=== PATIENT | female | born 1955 | race Caucasian/White ===

== ENCOUNTER → 2016-09-29 | Outpatient (CLI) | payer OTHER ==
[~2016-09-29] MED LIST: EFFSR150 PO; MCRKUNK; MGN PO; MULT-513 PO
--- NOTE | 2016-09-29 16:02 | MAMMOGRAPHY REPORT ---
BILATERAL DIGITAL SCREENING MAMMOGRAM TOMOSYNTHESIS WITH CAD: 09/29/2016 CLINICAL HISTORY: Routine screening. Patient has no complaints. TECHNIQUE: Breast tomosynthesis in addition to standard 2D mammography was performed. Current study was also evaluated with a Computer Aided Detection (CAD) system. COMPARISON: Comparison is made to exams dated: 04/27/2014 mammogram, 08/13/2012 mammogram, 05/09/2011 mammogram, and 02/09/2010 mammogram - [facility]. BREAST COMPOSITION: There are scattered areas of fibroglandular density in both breasts. FINDINGS: There is a small cluster of calcifications in the left upper outer quadrant, for which sp ot magnification views are recommended for further evaluation. The remainder of both breasts are stable compared to prior exams, without suspicious masses, calcifi cations, or areas of architectural distortion noted. Other scattered bilateral coarse benign-appear ing calcifications are again noted. IMPRESSION: ACR BI-RADS CATEGORY 0: INCOMPLETE EVALUATION: NEED ADDITIONAL IMAGING EVALUATION Left upper outer quadrant calcifications, for which additional imaging evaluation is recommended. T he patient will be called to schedule an appointment. Approximately 10% of breast cancers are not detected with mammography. A negative mammographic repor t should not delay biopsy if a clinically suggestive mass is present. Latisha Miranda M.D. ah/:09/29/2016 15:43:27 Account Services Manager: Lucero Pierre [facility] letter sent: Addl Imaging 0 BI-RADS Code: ACR BI-RADS Category 0: Incomplete Evaluation: Need Additional Imaging Evaluation
== END | disposition home or self-care (01) ==
LOC: C.MAMM 14:56
PROVIDERS: ATTEND Family Medicine
DX: Z12.31 Encounter for screening mammogram for malignant neoplasm of breast (principal); R92.1 Mammographic calcification found on diagnostic imaging of breast

== ENCOUNTER → 2016-10-06 | Outpatient (CLI) | payer OTHER ==
--- NOTE | 2016-10-06 14:32 | MAMMOGRAPHY REPORT ---
UNILATERAL LEFT DIGITAL DIAGNOSTIC MAMMOGRAM: 10/06/2016 CLINICAL HISTORY: 61-year-old woman with a family history of breast cancer = mother, called back fro m screening mammography for a new cluster of calcifications in the left breast. TECHNIQUE: Spot magnification CC and ML views were obtained. COMPARISON: Comparison is made to exams dated: 09/29/2016 mammogram, 04/27/2014 mammogram, 08/13/2012 mammogram, 05/09/2011 mammogram, 02/09/2010 mammogram - [facility], and 10/10/2006. BREAST COMPOSITION: There are scattered areas of fibroglandular density in the left breast. FINDINGS: There is a small, 3 mm cluster of coarse heterogeneous microcalcifications in the approxi mate 4:00 middle one third of the left breast that is new comparing to the most recent prior availab le mammograms from 04/27/2014. There is possible associated faint nodularity appreciated on the CC view suggesting this could represent a degenerating fibroadenoma. However, definitive characterizat ion with tissue sampling is recommended to exclude the possibility of DCIS, particularly with the pa rojas's family history of breast cancer. There are a few other benign round and coarse calcificatio ns seen in the left breast. No other suspicious mass or focal area of architectural distortion. IMPRESSION: ACR BI-RADS CATEGORY 4B: INTERMEDIATE SUSPICION FOR MALIGNANCY A new 3 mm cluster of coarse heterogeneous microcalcifications in the lateral left breast is indeter minate, warranting further evaluation with a stereotactic guided biopsy. These results were co recommendations nditions were discussed with the patient at the time of the ex am. She ctentatively scheduled the biopsy prior to leaving our department. Approximately 10% of breast cancers are not detected with mammography. A negative mammographic repor t should not delay biopsy if a clinically suggestive mass is present. Lara Clarke M.D. ay/:10/06/2016 11:52:17 Learning And Development Associate: Roseline [employer])(M), [facility] letter sent: Abnormal 4/5 BI-RADS Code: ACR BI-RADS Category 4B: Intermediate Suspicion For Malignancy
== END | disposition home or self-care (01) ==
LOC: C.MAMM 11:16
PROVIDERS: ATTEND Family Medicine
DX: R92.1 Mammographic calcification found on diagnostic imaging of breast (principal); R92.0 Mammographic microcalcification found on diagnostic imaging of breast; Z80.3 Family history of malignant neoplasm of breast

== ENCOUNTER → 2016-10-25 | Outpatient (CLI) | payer OTHER ==
--- NOTE | 2016-10-25 13:17 | Discharge Instructions ---
Discharge Instructions Procedure Procedure Date: Oct 25, 2016. Reason for visit: Left Calcifications. Discharge Discharge Date: Oct 25, 2016. Discharge Diagnosis: status post breast biopsy Instructions Activity Recommendations: Additional Limitations (see below) Return to School/Work: no limitations Recommended Home Diet: No Limitations Provider Instructions: ACTIVITY RECOMMENDATIONS: * No lifting, pushing, pulling or exercising the affected side for three days. RETURN TO SCHOOL/WORK: * You may return to work/school after the procedure, but do not perform any strenuous activities for 24 to 48 hours. MEDICATIONS: * Tylenol (two 325 mg) every four to six hours if needed for mild pain (if not allergic to Tylenol). DIET: * Resume previous diet. SPECIAL CARE INSTRUCTIONS: * Keep biopsy site dry for 24 hours. May shower after 24 hours, but do not soak (bathe) incision. * May remove Tegaderm (plastic patch) tomorrow AFTER showering. * Leave the steri-strips on for one week. Allow the steri-strips to fall off by themselves. If not off after one week, you may remove them. You may place a Bandaid crosswise over the strips, if desired. * Apply ice 10 minutes on and 10 minutes off as needed. * Wear a bra at bedtime to sleep more comfortably for 2-3 days. * Your referring physician should have the results after approximately 5 to 7 business days. * Call for unusual bleeding, fever, drainage, etc or if you have any questions call during normal business hours or after hours call Dr Miranda, . FOLLOW UP VISIT: Follow-up with Referring Physician as scheduled. Allergies Coded Allergies: No Known Allergies (Unverified , NONE, 03/27/09) Stephen Velarde Recommendations: Call your doctor if: * Temperature above 101 degrees * Pain not relieved by pain medicine ordered * There is increased drainage or redness from any incision * You have any unanswered questions or concerns. Your Doctors Instructions noted above were prepared by provider Latisha Miranda. Patient Signature Section: Patient Instructions Signature Page Fabienne Fitzgerald Patient (or Guardian) Signature/Date: I have read and understand the instructions given to me by my caregivers. Caregiver/RN/Doctor Signature/Date: The above-named patient and/or guardian has received patient instructions on this date. + Original Patient Signature Page (only) stays with chart. Please make copy for patient.
--- NOTE | 2016-10-25 14:41 | MAMMOGRAPHY REPORT ---
STEREOTACTIC GUIDED BIOPSY LEFT BREAST: 10/25/2016 CLINICAL HISTORY: Indeterminate calcifications in the left lateral breast. PATIENT CONSENT: The procedure, risks, benefits, and alternatives of stereotactic biopsy with clip p lacement were discussed with the patient, and verbal and written consent was obtained. A timeout wa s performed immediately prior to the procedure. PROCEDURE DESCRIPTION: With stereotactic guidance, aseptic technique, and lidocaine as a local anest hetic (1% lidocaine to anesthetize the skin and 1% lidocaine with epinephrine to anesthetize the bibi per tissues), the area of concern was sampled multiple times with a 9-gauge vacuum-assisted biopsy n eedle ([employer] The path of approach was lateral. The specimen radiograph demonstrates calcif ications to be present in the samples. The calcifications containing samples (labeled "A ") were se parated from the samples without calcifications (labeled "B"). A metallic marker clip was placed at the biopsy site. This was confirmed on postprocedure mammograms. Direct pressure was applied at t he biopsy site and hemostasis was readily achieved. The patient tolerated the procedure without com plication. She was given wound care instructions. COMPARISON: Comparison is made to exams dated: 10/06/2016 mammogram, 09/29/2016 mammogram, 04/27/2014 mammogram, 08/13/2012 mammogram, 05/09/2011 mammogram, and 02/09/2010 mammogram - [facility]. IMPRESSION: STEREOTACTIC GUIDED BIOPSY Stereotactic biopsy of indeterminate calcifications in the left lateral breast, with clip placement. The patient will receive pathology results from her referring provider. Latisha Miranda M.D. /:10/25/2016 13:19:37 Line Patrolman: Lucero [employer])(Cosmo), [facility]
--- NOTE | 2016-10-25 14:43 | MAMMOGRAPHY REPORT ---
UNILATERAL LEFT DIGITAL DIAGNOSTIC MAMMOGRAM: 10/25/2016 CLINICAL HISTORY: Status post left breast stereotactic biopsy. TECHNIQUE: Postprocedural left CC and LM views were obtained. COMPARISON: Comparison is made to exams dated: 09/29/2016 mammogram, 04/27/2014 mammogram, 08/13/2012 mammogram, 05/09/2011 mammogram, and 02/09/2010 mammogram - [facility]. BREAST COMPOSITION: There are scattered areas of fibroglandular density in the left breast. FINDINGS: A new biopsy marker clip is seen at the site of the biopsied calcifications in the left l ateral breast at approximately 4:00. No significant postbiopsy hematoma is seen. IMPRESSION: POST PROCEDURE IMAGING FOR MARKER PLACEMENT New biopsy marker clip status post stereotactic biopsy of left lateral breast calcifications. Patho logy results are pending. Approximately 10% of breast cancers are not detected with mammography. A negative mammographic repor t should not delay biopsy if a clinically suggestive mass is present. Latisha Miranda M.D. ah/:10/25/2016 13:32:46 Lead Java Programmer: Lucero [employer])(M), [facility] BI-RADS Code: Post Procedure Imaging For Marker Placement
== END | disposition home or self-care (01) ==
LOC: C.MAMM 12:30
PROVIDERS: ATTEND Family Medicine
DX: D24.2 Benign neoplasm of left breast (principal); R92.0 Mammographic microcalcification found on diagnostic imaging of breast

== ENCOUNTER 2017-11-15 15:52 | Emergency (ER) | payer OTHER ==
[~2017-11-15] VITALS: Ht 157.5 cm; Wt 71.9 kg
[2017-11-15 15:57] VITALS: TEMP 36.6; Ht 157.5 cm; Wt 71.9 kg
[2017-11-15 17:34] LABS: HEMATOCRIT 40.9 % (37-47); HEMOGLOBIN 13.7 g/dL (12.0-16.0); MEAN CELL VOLUME 85.2 fL (80-100); MEAN CORPUSCULAR HEMOGLOBIN 28.5 pg (25-34); MEAN CORPUSCULAR HGB CONC 33.5 g/dl (32-36); MEAN PLATELET VOLUME 10.2 fL (7.4-10.4); PLATELET COUNT 296 K/uL (130-400); RED CELL DISTRIBUTION WIDTH CV 13.7 % (11.5-14.5); RED CELL DISTRIBUTION WIDTH SD 42.3 fL (36.4-46.3); WHITE BLOOD COUNT 11.37 K/uL (4.8-10.8)
--- NOTE | 2017-11-15 17:38 | EMERGENCY ROOM VISIT NOTE ---
History Report prepared by Carla: Randall Anderson Under the Supervision of: Aviva KumarO. First contact with patient: 17:29 Chief Complaint: FLANK PAIN Stated Complaint: RT SIDE PAIN GOING DOWN RIGHT LEG History of Present Illness The patient is a 62 year old female who presents to the Emergency Room with complaints of waxing and waning right flank pain that started last night. She states that overnight, she had trouble sleeping as she had right flank pain that went down to her right leg. The patient adds that during the day today, the pain has started to wrap around to her lower abdomen. She describes her abdominal pain as a pressure. She notes that her flank pain is a bit better now , but the abdominal pain is worsening. The patient says that currently she is having intermittent sharp pain wrapping around into her abdomen. She adds that she feels like she needs to urinate constantly today. The patient denies any changes in her urine, or increased frequency or strong odor. She says that she has not had a problem like this ever since she was a child. The patient notes no history or family history of kidney problems. She denies any fevers, chills, nausea, vomiting, or new changes in her bowel movement. Source of History: patient Onset: Last night Position: other (right flank) Quality: pressure, sharp, other (pain) Timing: waxes/wanes Modifying Factors (Relieving): other (standing up) Associated Symptoms: + abdominal pain, + urinary symptoms (feels like needing to urinate constantly), No fevers, No chills, No nausea, No vomiting Note: Denies changes in bowel movements. Review of Systems See HPI for pertinent positives & negatives. A total of 10 systems reviewed and were otherwise negative. Past Medical & Surgical Medical Problems: (1) HLD (hyperlipidemia) (2) HTN (hypertension) Family History FHx: cancer Hypertension Social History Smoking Status: Former Smoker Alcohol Use: occasionally Marital Status: Occupation Status: employed Current/Historical Medications Scheduled Melatonin (Kp Melatonin), Unknown Dose PO HS Multivitamins/Minerals (Mvi With Minerals), 1 TAB PO DAILY Sertraline (Zoloft), 2 TABS PO QPM Tamsulosin Hcl (Flomax), 0.4 MG PO DAILY Scheduled PRN Hydrocodone/Acetaminophen 5MG/325MG (Hopkins 5MG/325MG), 1 TABLET PO Q8 PRN for Pain Allergies Coded Allergies: No Known Allergies (Unverified , NONE, 11/15/17) Physical Exam Vital Signs Date Time Temp Pulse Resp B/P (MAP) Pulse Ox O2 Delivery O2 Flow Rate FiO2 11/15/17 20:00 65 129/76 95 11/15/17 17:18 80 18 122/72 98 Room Air 11/15/17 15:57 36.6 85 16 143/88 95 Room Air Physical Exam GENERAL: alert, uncomfortable appearing, well nourished, no distress, non-toxic EYE EXAM: normal conjunctiva, PERRL and EOM's grossly intact OROPHARYNX: no exudate, no erythema, lips, buccal mucosa, and tongue normal and mucous membranes are moist NECK: supple, no nuchal rigidity, no adenopathy, non-tender LUNGS: Clear to auscultation. Normal chest wall mechanics HEART: no murmurs, S1 normal and S2 normal ABDOMEN: abdomen soft, mild discomfort with palpation of bilateral lower quadrants and suprapubic areas, normo-active bowel sounds, no masses, no rebound or guarding. BACK: Back is symmetrical on inspection and there is no deformity. Minimal reproducible right flank pain, no CVA tenderness. SKIN: no rashes and no bruising UPPER EXTREMITIES: upper extremities are grossly normal. LOWER EXTREMITIES: No pitting edema. NEURO EXAM: Normal sensorium, cranial nerves II-XII grossly intact, normal speech, no gross weakness of arms, no gross weakness of legs. Medical Decision & Procedures ER Provider Diagnostic Interpretation: CT results have been interpreted by the radiologist and reviewed by me. ABD/PELVIS WITHOUT FOR STONE CT DOSE: 351.33 mGy.cm HISTORY: Flank pain right flank pain TECHNIQUE: Multiaxial CT images of the abdomen and pelvis were performed without the use of intravenous and oral contrast according to the standard department stone protocol. A dose lowering technique was utilized adhering to the principles of ALARA. COMPARISON STUDY: None. FINDINGS: Mild bibasilar atelectasis. Liver spleen and pancreas are unremarkable in overall morphology. Moderate right hydroureteronephrosis. Right ureter is distended to a mild degree to a 4 mm calcification of the distal right ureter. Lateral to the collateral with no contained calcifications. Nonobstructive bowel pattern. Normal appendix. IMPRESSION: 4 mm partially obstructing calculus distal right ureter. The above report was generated using voice recognition software. It may contain grammatical, syntax or spelling errors. Electronically signed by: Praful Fuentes M.D. 11/15/2017 7:05 PM Dictated Date/Time: 11/15/2017 7:01 PM Laboratory Results 11/15/17 16:08 11/15/17 16:08 Test 11/15/17 16:08 11/15/17 17:15 Red Blood Count 4.80 M/uL (4.2-5.4) Mean Corpuscular Volume 85.2 fL (80-100) Mean Corpuscular Hemoglobin 28.5 pg (25-34) Mean Corpuscular Hemoglobin Concent 33.5 g/dl (32-36) RDW Standard Deviation 42.3 fL (36.4-46.3) RDW Coefficient of Variation 13.7 % (11.5-14.5) Mean Platelet Volume 10.2 fL (7.4-10.4) Prothrombin Time 10.0 SECONDS (9.0-12.0) Prothromb Time International Ratio 1.0 (0.9-1.1) Anion Gap 7.0 mmol/L (3-11) Est Creatinine Clear Calc Drug Dose 58.9 ml/min Estimated GFR () 77.3 Estimated GFR (Non- 66.7 BUN/Creatinine Ratio 17.4 (10-20) Calcium Level 9.0 mg/dl (8.5-10.1) Troponin I < 0.015 ng/ml (0-0.045) Urine Color YELLOW Urine Appearance CLEAR (CLEAR) Urine pH 6.5 (4.5-7.5) Urine Specific [place] 1.028 (1.000-1.030) Urine Protein NEG (NEG) Urine Glucose (UA) NEG (NEG) Urine Ketones TRACE (NEG) Urine Occult Blood 3+ (NEG) Urine Nitrite NEG (NEG) Urine Bilirubin NEG (NEG) Urine Urobilinogen NEG (NEG) Urine Leukocyte Esterase NEG (NEG) Urine WBC (Auto) 1-5 /hpf (0-5) Urine RBC (Auto) >30 /hpf (0-4) Urine Hyaline Casts (Auto) 1-5 /lpf (0-5) Urine Epithelial Cells (Auto) 10-20 /lpf (0-5) Urine Bacteria (Auto) NEG (NEG) Laboratory results per my review. Medications Administered Medications (Trade) Dose Ordered Sig/Jim Route Start Time Stop Time Status Last Admin Dose Admin Ketorolac Tromethamine (Toradol Inj) 30 mg NOW STAT IV 11/15/17 17:52 11/15/17 17:53 DC 11/15/17 18:13 30 MG Fentanyl Citrate (Fentanyl Inj) 50 mcg NOW STAT IV 11/15/17 17:52 11/15/17 17:53 DC 11/15/17 18:13 50 MCG Tamsulosin HCl (Flomax Cap) 0.4 mg NOW ONCE PO 11/15/17 19:30 11/15/17 19:31 DC 11/15/17 19:52 0.4 MG Acetaminophen/ Hydrocodone Bitart (Hopkins 5/325mg Home Pack) 1 homepack UD ONCE PO 11/15/17 19:30 11/15/17 19:31 DC 11/15/17 19:52 1 HOMEPACK ED Course 1730: The patient was evaluated in room A9B. A complete history and physical exam was performed. 1751: Fentanyl Inj 50 mcg IV, Toradol Inj 30 mg IV. 1923: Upon reevaluation, the patient is feeling well and was updated. I discussed the findings and the treatment plan with the patient. She verbalizes agreement and understanding. She was discharged home. 1929: Flomax Cap 0.4 mg PO. Medical Decision Differential diagnosis: Etiologies such as renal colic, appendicitis, diverticulitis, mesenteric ischemia, aortic pathology, infections, inflammatory bowel disease, PUD, biliary pathology, UTI, as well as others were entertained. Patient well-appearing here in pain improved following medications. CT revealed 4 mm ureterolithiasis. No evidence of acute renal dysfunction, no evidence of concurrent infection, doubt other acute GI pathology contributing to pain. Discussed with patient straining of urine, adequate hydration, use of medications, ADRs associated with the pain medication, close follow-up with family doctor and possibly urology, discussed symptoms to watch and return for, she verbalized understanding was agreeable with plan. Patient well-appearing at discharge, tolerated p.o., was able toward with a steady gait, vital signs stable throughout. Medication Reconcilliation Current Medication List: was personally reviewed by me Blood Pressure Screening Patient's blood pressure: Normal blood pressure Impression Primary Impression: Ureterolithiasis Additional Impressions: Right flank pain Renal colic Scribe Attestation The scribe's documentation has been prepared under my direction and personally reviewed by me in its entirety. I confirm that the note above accurately reflects all work, treatment, procedures, and medical decision making performed by me. Departure Information Dispostion Home / Self-Care Prescriptions Hydrocodone/Acetaminophen 5MG/325MG (Hopkins 5MG/325MG) Tab 1 TABLET PO Q8 Y for Pain, #10 TAB Prov: Sofi Marx, DO 11/15/17 Tamsulosin Hcl (FLOMAX) 0.4 Mg Cap 0.4 MG PO DAILY, #10 CAP Prov: Sofi Marx, DO 11/15/17 Referrals aDrwin Archer M.D. (PCP) Patient Instructions My [facility] Additional Instructions Please call and follow-up with your family doctor. Please drink plenty of water. Please take the flomax daily until you pass the stone. You may use the stronger pain medication as prescribed, do not take it and drive and be cautious as it can make you dizzy/groggy and cause constipation. If you have any worsening pain, are unable to urinate, develop vomiting, fevers, or you have any other new or concerning symptoms, please return to the emergency room. Problem Qualifiers
[2017-11-15] MEDS ORDERED: FENTANYL CITRATE INJ 50 MCG/1 ML 2 ML VIAL IV STA (17:52)
[2017-11-15] MEDS ORDERED: KETOROLAC TROMETHAMINE 30 MG/ML VIAL IV STA (17:52)
[2017-11-15 17:53] LABS: CREATININE 0.92 mg/dl (0.60-1.20)
[2017-11-15] MEDS ORDERED: SERT25TA PO (18:05)
[2017-11-15] MEDS ORDERED: MELA1TAB5 PO (18:05)
--- NOTE | 2017-11-15 19:06 | DIAGNOSTIC IMAGING REPORT ---
ABD/PELVIS WITHOUT FOR STONE CT DOSE: 351.33 mGy.cm HISTORY: Flank pain right flank pain TECHNIQUE: Multiaxial CT images of the abdomen and pelvis were performed without the use of intravenous and oral contrast according to the standard department stone protocol. A dose lowering technique was utilized adhering to the principles of ALARA. COMPARISON STUDY: None. FINDINGS: Mild bibasilar atelectasis. Liver spleen and pancreas are unremarkable in overall morphology. Moderate right hydroureteronephrosis. Right ureter is distended to a mild degree to a 4 mm calcification of the distal right ureter. Lateral to the collateral with no contained calcifications. Nonobstructive bowel pattern. Normal appendix. IMPRESSION: 4 mm partially obstructing calculus distal right ureter. The above report was generated using voice recognition software. It may contain grammatical, syntax or spelling errors. Electronically signed by: Praful Fuentes M.D. 11/15/2017 7:05 PM Dictated Date/Time: 11/15/2017 7:01 PM
[2017-11-15] MEDS ORDERED: NORCO 5/325MG HOME PACK PO ONE (19:30)
[2017-11-15] MEDS ORDERED: TAMS0.4C38 PO (19:30)
[2017-11-15] MEDS ORDERED: TAMSULOSIN HCL 0.4 MG CAP PO ONE (19:30)
[2017-11-15] MEDS ORDERED: HYDR-5688 PO (19:30)
[2017-11-15 20:00] VITALS: BP 129/76; PULSE 65; O2SAT 95
== END 2017-11-15 20:01 | disposition home or self-care (01) ==
LOC: C.EDB 15:54 → C.EDA 20:01
DX: N20.1 Calculus of ureter (principal); N23 Unspecified renal colic; R35.0 Frequency of micturition; I10 Essential (primary) hypertension; Z87.891 Personal history of nicotine dependence; Z79.899 Other long term (current) drug therapy

== ENCOUNTER 2017-12-10 13:04 | Emergency (ER) | payer OTHER ==
[~2017-12-10] VITALS: Ht 157.5 cm; Wt 72.7 kg
[~2017-12-10 13:04] MED LIST changes: -EFFSR150 PO; +HYDR-5688 PO; -MCRKUNK; +MELA1TAB5 PO; -MGN PO; +SERT25TA PO
[2017-12-10 13:06] VITALS: TEMP 36.6; Ht 157.5 cm; Wt 72.7 kg
[2017-12-10] MEDS ORDERED: SODIUM CHLORIDE 0.9% 1000ML 1,000 ML IV STA (13:21)
[2017-12-10] MEDS ORDERED: ONDANSETRON INJ 2 MG/ML 2 ML VIAL IV STA (13:21)
[2017-12-10] MEDS ORDERED: MoRPHine SULFATE 4 MG/ML 1 ML CARP\\VIAL IV STA ×2 (13:21→13:55)
[2017-12-10] MEDS ORDERED: IBUP-1050 PO (13:25)
[2017-12-10 13:38] LABS: BASO % 0.2 %; BASO ABS # 0.02 K/uL (0-0.2); EOS % 0.2 %; EOS ABS # 0.02 K/uL (0-0.5); HEMATOCRIT 39.1 % (37-47); HEMOGLOBIN 13.2 g/dL (12.0-16.0); IG# 0.02 K/uL (0.00-0.02); LYMPH % 12.3 %; LYMPH ABS # 1.18 K/uL (1.2-3.4); MEAN CELL VOLUME 84.1 fL (80-100); MEAN CORPUSCULAR HEMOGLOBIN 28.4 pg (25-34); MEAN CORPUSCULAR HGB CONC 33.8 g/dl (32-36); MONO % 4.7 %; MONO ABS # 0.45 K/uL (0.11-0.59); NEUT % 82.4 %; NEUT ABS # 7.92 K/uL (1.4-6.5); PLATELET COUNT 301 K/uL (130-400); RED CELL DISTRIBUTION WIDTH CV 13.6 % (11.5-14.5); RED CELL DISTRIBUTION WIDTH SD 41.3 fL (36.4-46.3); WHITE BLOOD COUNT 9.61 K/uL (4.8-10.8)
--- NOTE | 2017-12-10 13:51 | DIAGNOSTIC IMAGING REPORT ---
KUB CLINICAL HISTORY: Generalized abdominal pain. FINDINGS: 2 AP supine abdominal radiographs are correlated with abdominal CT dated 11/15/2017. There is a nonobstructed abdominal bowel gas pattern. No evidence of intraperitoneal free air is seen on these supine images. There is no radiographic evidence of nephrolithiasis. Large phleboliths are identified in left hemipelvis. The Skeletal structures are osteopenic. Lumbosacral spondylosis is observed. IMPRESSION: 1. Nonobstructed abdominal bowel gas pattern. 2. There is no radiographic evidence of nephrolithiasis. Electronically signed by: Keanu Valle M.D. 12/10/2017 1:50 PM Dictated Date/Time: 12/10/2017 1:48 PM
[2017-12-10 13:57] LABS: ALBUMIN 3.9 gm/dl (3.4-5.0); CALCIUM 8.9 mg/dl (8.5-10.1); CREATININE 0.61 mg/dl (0.60-1.20); POTASSIUM 3.9 mmol/L (3.5-5.1); TOTAL PROTEIN 7.4 gm/dl (6.4-8.2)
--- NOTE | 2017-12-10 14:58 | DIAGNOSTIC IMAGING REPORT ---
ABDOMEN AND PELVIS CT WITHOUT CONTRAST CT DOSE: 729.20 mGy.cm HISTORY: c/o L flank that started L lumbar area TECHNIQUE: Multiaxial CT images of the abdomen and pelvis were performed without the use of intravenous and oral contrast according to the standard department stone protocol. A dose lowering technique was utilized adhering to the principles of ALARA. COMPARISON STUDY: Abdomen and pelvis CT 11/15/2017. FINDINGS: Groundglass densities within the lungs posteriorly favor mild dependent change. No pneumoperitoneum. No pneumatosis. No fractures within the visualized osseous structures. Moderate to severe degenerative disc disease within the lumbar spine. This remains unchanged. The unenhanced liver, gallbladder, spleen, and pancreas are unremarkable. No retroperitoneal lymphadenopathy. Normal right adrenal gland. Stable 1.4 cm left adrenal gland nodule consistent with a benign adenoma. There is a punctate stone within the upper pole the left kidney and within the lower pole the right kidney. No hydronephrosis. No ureteral or bladder stones identified. The bladder is unremarkable. No bowel wall thickening or obstruction. Normal appendix. Colonic diverticulosis. Suboptimal evaluation for bowel pathology due to the lack of intravenous and oral contrast. Questionable thickening of the descending colon is likely due to underdistention. IMPRESSION: 1. Bilateral nephrolithiasis. No ureteral stones. No hydronephrosis. 2. No definite bowel wall thickening or obstruction. 3. Colonic diverticulosis. 4. Normal appendix. Electronically signed by: Abhinav Paige M.D. 12/10/2017 2:57 PM Dictated Date/Time: 12/10/2017 2:35 PM
[2017-12-10 15:20] VITALS: BP 116/62; PULSE 73; O2SAT 94
[2017-12-10] MEDS ORDERED: HYDR-5688 PO (15:27)
[2017-12-10] MEDS ORDERED: ONDANSETRON 4MG OD TAB PO STA (15:42)
[2017-12-10] MEDS ORDERED: ONDANSETRON 4MG OD TAB ONE (15:43)
--- NOTE | 2017-12-10 17:38 | EMERGENCY ROOM VISIT NOTE ---
ED Visit Note First contact with patient: 13:21 Chief Complaint: Back pain. History of Present Illness: Ms. Porras is a 62 year-old white female who ambulates into the ED complaining of left-sided back pain. Historically patient reports ureter calculus in late October 2017. She passed the stone without complications. She denies any previous significant gastrointestinal diseases, abdominal surgeries and back diseases. Patient reports a acute onset of left lower lumbar back pain that started shortly after waking approximately 6 hours ago. She reports she describes the pain as a sharp and achy sensation. She places her discomfort at the L2 through L4 area. She reports her pain was radiating down the anterior front of the thigh and her left leg was numb. Since her pain started the pain now moved into the left CVA area and is no longer radiating down the left leg and she is not experiencing any numbness of the leg but her pain is partially radiating around into the abdomen. Currently she rates her discomfort 10/10. Her pain does worsen with flexion of the abdomen. She has not identified any alleviating factors related to the pain. She reports she has used heat and Motrin without relief of her discomfort. Associated with her pain she reports she is nauseated but has not vomited and she reports she has plain in the bladder area when she urinates. Currently she denies fevers, chills, sweats, skin eruptions, skin color changes , upper respiratory tract symptoms, cough, wheezing, shortness of breath, upper abdominal pain, diarrhea, constipation, rectal bleeding, black/tarry stools, urinary burning, hematuria, increased urinary frequency, vaginal bleeding, vaginal discharge, lower extremity weakness/numbness/tingling. Review of Systems: As noted above in history of present illness. All body systems were reviewed and found to be negative as noted above. Past Medical History: As previously noted. Current Medications: Zoloft, melatonin, ibuprofen and vitamins. Allergies to Medications: Patient denies. Social History: Patient is currently employed; she feels safe in her home environment; she denies tobacco and alcohol use. Physical Examination: Vital Signs: Date Time Temp Pulse Resp B/P (MAP) Pulse Ox O2 Delivery O2 Flow Rate FiO2 12/10/17 15:20 73 16 116/62 94 Room Air 12/10/17 14:17 60 20 128/72 93 Nasal Cannula 3.0 12/10/17 13:06 36.6 77 20 147/79 94 Room Air GENERAL: 62-year-old female in moderate distress due to pain, nontoxic-appearing , afebrile and hemodynamically stable. NEUROLOGICAL: Awake, alert and oriented to person, place and time. Answering questions appropriately and following commands. Normal gait. Good hand eye coordination. SKIN: Warm, dry and pink. No soft tissue eruptions or trauma noted. HEENT: Atraumatic and normocephalic. PERRLA. Sclera white and conjunctiva pink. Oral cavity moist and pink. Pharynx is nonerythematous or edematous. Speech normal. No lymphadenopathy. Trachea midline. No jugular venous distention. BACK: No tenderness over the bony cervical and thoracic spine. No tenderness or muscle spasms palpable in the thoracic or lumbar back. No CVA tenderness. Negative straight leg raise test. Questionable decreased range of motion in flexion at the waist but not lateral bending or extension. THORAX: Lungs sounds are clear to auscultation and equal bilaterally with symmetrical chest wall. HEART: Regular rate and rhythm. No gallops, rubs or murmurs are appreciated. ABDOMEN: Flat, soft and nontender. Positive bowel sounds in all quadrants. No guarding, rigidity or organomegaly. EXTREMITIES: Moves all extremities well on command and with purpose. All distal neurovascular statuses are intact and equal bilaterally. No calf tenderness or cords. 4/5 muscle strength in all movements of the hips, knees and ankles. 2+ patellar and Achilles deep tendon reflexes intact and equal bilaterally. Able to distinguish light sensations to all dermatomes. ED Course: Patient is assessed as noted above. Patient's medication list was reviewed. Laboratory Testing: Test 12/10/17 13:25 12/10/17 14:45 Range/Units White Blood Count 9.61 4.8-10.8 K/uL Red Blood Count 4.65 4.2-5.4 M/uL Hemoglobin 13.2 12.0-16.0 g/dL Hematocrit 39.1 37-47 % Mean Corpuscular Volume 84.1 80-100 fL Mean Corpuscular Hemoglobin 28.4 25-34 pg Mean Corpuscular Hemoglobin Concent 33.8 32-36 g/dl Platelet Count 301 130-400 K/uL Mean Platelet Volume 10.0 7.4-10.4 fL Neutrophils (%) (Auto) 82.4 % Lymphocytes (%) (Auto) 12.3 % Monocytes (%) (Auto) 4.7 % Eosinophils (%) (Auto) 0.2 % Basophils (%) (Auto) 0.2 % Neutrophils # (Auto) 7.92 1.4-6.5 K/uL Lymphocytes # (Auto) 1.18 1.2-3.4 K/uL Monocytes # (Auto) 0.45 0.11-0.59 K/uL Eosinophils # (Auto) 0.02 0-0.5 K/uL Basophils # (Auto) 0.02 0-0.2 K/uL RDW Standard Deviation 41.3 36.4-46.3 fL RDW Coefficient of Variation 13.6 11.5-14.5 % Immature Granulocyte % (Auto) 0.2 % Immature Granulocyte # (Auto) 0.02 0.00-0.02 K/uL Sodium Level 137 136-145 mmol/L Potassium Level 3.9 3.5-5.1 mmol/L Chloride Level 105 98-107 mmol/L Carbon Dioxide Level 24 21-32 mmol/L Anion Gap 7.0 3-11 mmol/L Blood Urea Nitrogen 14 7-18 mg/dl Creatinine 0.61 0.60-1.20 mg/dl Est Creatinine Clear Calc Drug Dose 89.3 ml/min Estimated GFR () 112.6 Estimated GFR (Non- 97.2 BUN/Creatinine Ratio 22.7 10-20 Random Glucose 97 70-99 mg/dl Calcium Level 8.9 8.5-10.1 mg/dl Total Bilirubin 0.5 0.2-1 mg/dl Direct Bilirubin 0.1 0-0.2 mg/dl Aspartate Amino Transf (AST/SGOT) 16 15-37 U/L Alanine Aminotransferase (ALT/SGPT) 23 12-78 U/L Alkaline Phosphatase 113 45-117 U/L Total Protein 7.4 6.4-8.2 gm/dl Albumin 3.9 3.4-5.0 gm/dl Lipase 120 73-393 U/L Urine Color YELLOW Urine Appearance CLEAR CLEAR Urine pH 6.0 4.5-7.5 Urine Specific [place] 1.021 1.000-1.030 Urine Protein NEG NEG Urine Glucose (UA) NEG NEG Urine Ketones NEG NEG Urine Occult Blood NEG NEG Urine Nitrite NEG NEG Urine Bilirubin NEG NEG Urine Urobilinogen NEG NEG Urine Leukocyte Esterase TRACE NEG Urine WBC (Auto) 1-5 0-5 /hpf Urine RBC (Auto) 0-4 0-4 /hpf Urine Hyaline Casts (Auto) 1-5 0-5 /lpf Urine Epithelial Cells (Auto) 5-10 0-5 /lpf Urine Bacteria (Auto) NEG NEG KUB: Was read by myself and the radiologist and shows no free air under the diaphragm. Normal bowel gas pattern with no signs of obstructions. No ureter calculus noted. Noncontrast Abdominal/Pelvic CT: Was reviewed by myself and read by the radiologist showing no pneumoperitoneum, moderate to severe degenerative disc disease within the lumbar spine unchanged from previous CT, normal-appearing unenhanced liver, gallbladder, spleen and pancreas, no retroperitoneal lymphadenopathy, normal right adrenal gland stable, stable 1.4 left adrenal gland nodule consistent with benign adenoma, punctate kidney stones in the left upper pole and right lower pole without hydronephrosis, no ureteral or bladder stones, no bowel wall thickening, normal-appearing appendix, colonic diverticulosis without acute diverticulitis and questionable thickening of the distal colon likely due to under distention. Patient was hydrated with normal saline and she received a total of 8 mg of morphine IV and 8 mg of Zofran; 4 IV and 4 ODT. Patient was reassessed multiple times during her stay in the emergency department. Patient's case was reviewed with Dr. Martinez; we agreed on diagnostic approach, treatment, disposition and plan. Patient was educated about today's findings and instructed on her treatment plan ; she verbalized understanding and agreement with this plan. Clinical Impression: Acute left-sided flank pain. Acute lumbar back pain, resolved. Decision-Making: Initially my differential diagnosis I considered kidney stone, pyelonephritis, musculoskeletal disorders include herniated disc, muscle spasm, cauda equina syndrome and others, pancreatitis and other causes of back pain. Disposition: Patient discharged home in stable condition accompanied by a friend ; prior to departure she was reassessed and subjectively reported she was feeling better and rated her discomfort 6/10. Addition just prior to discharge patient did report she was nauseated and that is when she received her second dose of Zofran ODT. Plan: Patient was placed on a sliding pain scale of ibuprofen, acetaminophen and [place] ; her name was checked in state database and no red flags were noted and she was given appropriate narcotic precautions. Additional comfort measures including rest, ice and proper lifting and moving techniques were discussed with the patient. Patient was encouraged to contact her PCP and have a recheck in 2-3 days with consideration of a possible MRI for her disc disease. Patient was encouraged return to the ED for worsening pain, fevers, rectal/ genital paresthesias, bowel and bladder dysfunctions, lower extremity weakness/ numbness/tingling, fevers or any new/concerning symptoms.
== END 2017-12-10 15:40 | disposition home or self-care (01) ==
LOC: C.EDB 13:05 → C.EDD 15:40
DX: R10.12 Left upper quadrant pain (principal); R10.32 Left lower quadrant pain; M54.5 Low back pain; Z87.442 Personal history of urinary calculi; Z79.899 Other long term (current) drug therapy

== ENCOUNTER 2022-06-26 13:43 | Inpatient (IN) ==
[2022-06-26 14:14] LABS: Basophils # (auto) 0.03 K/uL (0-0.2); Basophils % (auto) 0.2 %; Hematocrit (blood only) 39.4 % (34.1-44.9); Hemoglobin 13.1 g/dl (12.0-16.0); Immature Granulocytes # (auto) 0.04 K/uL (0.00-0.02); Immature Granulocytes % (auto) 0.3 %; Lymphocytes # (auto) 1.12 K/uL (1.2-3.4); Lymphocytes % (auto) 9.3 %; Mean Corpuscular Hemoglobin 28.5 pg (25.0-34.0); Mean Corpuscular Hgb Conc 33.2 g/dL (32.0-36.0); Mean Corpuscular Volume 85.7 fL (80.0-100.0); Mean Platelet Volume 10.3 fL (9.4-12.3); Monocytes # (auto) 0.88 K/uL (0.24-0.82); Monocytes % (auto) 7.3 %; Neutrophils # (auto) 9.96 K/uL (1.4-6.5); Neutrophils % (auto) 82.9 %; Platelet Count 262 K/uL (130-400); RDW Coefficient of Variation 13.9 % (11.5-14.5); RDW Standard Deviation 43.2 fL (36.4-46.3); White Blood Count 12.03 K/ul (4.8-10.8)
[2022-06-26 14:29] LABS: Albumin Globulin Ratio 1.3 (0.9-2); Albumin Level 4.1 gm/dl (3.4-5.0); BUN Creatinine Ratio 22.2 (10-20); Bilirubin,Total 0.6 mg/dl (0.2-1.0); Calcium 9.3 mg/dl (8.5-10.1); Est GFR (African American) 108.3 ml/min; Est GFR (Non-African American) 93.5 ml/min; Globulin 3.2 gm/dl (2.5-4.0); Potassium 3.7 mmol/L (3.5-5.1); Total Protein 7.3 gm/dl (6.0-8.3)
[2022-06-26 14:48] LABS: Influenza A virus by PCR Negative (Neg); Influenza B virus by PCR Negative (Neg); RSV by PCR Negative (Neg); SARS CoV2 RNA(COVID-19) Ceph NEGATIVE (Negative)
[2022-06-26] MEDS ORDERED: SODIUM CHLORIDE 0.9% 1000ML 500 ML IV ONE (15:15)
[2022-06-26 15:19] LABS: Appearance Urine Cloudy (Clear); Bacteria Urine Automated Negative (Negative); Blood Urine 1+ (Negative); Color Urine Dark Yellow; Epithelial Cell Urine Auto >30 /lpf (0-5); Glucose Urine UA Negative (Negative); Ketones Urine 2+ (Negative); Leukocyte Esterase Urine 3+ (Negative); Nitrite Urine Negative (Negative); Protein Urine 1+ (Negative); Urobilinogen Urine Negative (Negative); WBC Urine Automated >30 /hpf (0-5)
[2022-06-26 15:20] LABS: Bilirubin Urine 1+ (Negative)
--- NOTE | 2022-06-26 15:22 | Emergency Department Note ---
Impression & Plan Acute pyelonephritis ADMIT ED Provider Note HPI: The patient is a 66-year-old female who presents the emergency department with a chief complaint of intermittent fever. Patient is noted to have a cystoscopy, ureteroscopy, and renal biopsy performed on the right side on 06/[address] Coppola over concern for filling defect and abnormal cytology on urine, patient states that she did have some right flank pain for several days after the biopsy but this resolved. Patient states she developed some fevers over the weekend that were intermittent and she has not had a fever today. Patient states she contacted her outpatient provider and was advised to come to the emergency department to rule out sepsis. On arrival here to the ED the patient is in no acute distress, she is not febrile on arrival, heart rate is within normal limits, blood pressure is slightly hypertensive at 149/81. Patient denies any current flank pain, states that time she is getting some suprapubic pressure and urinary frequency, states at times she is also getting headaches that are relatively mild in nature. ROS: -General: Intermittent fevers -: Right flank pain in the setting of recent kidney biopsy *10 point review systems was conducted and is otherwise negative unless stated above *Outpatient medications and allergy history reviewed PE: General: Alert HEENT: Normocephalic, trachea midline Eyes: Extraocular eye movement is intact, no scleral erythema Pulmonary: Clear to auscultation bilaterally, no wheezing Cardio: Regular rate and rhythm GI: Abdomen is soft, nontender : No suprapubic tenderness, right-sided flank tenderness to palpation MSK: No evidence of trauma or malformation of the extremities, no edema Skin: No evidence of rash Neuro: Alert, no focal deficits Psychiatric: Cooperative assurance sourcing manager: - An order was placed for continuous cardiac monitoring - Patient was noted to be in sinus rhythm with a rate of 90 Interventions provided in ED: -IV ceftriaxone, IV fluid bolus Medical Decision Making: Patient presented to the emergency department with some intermittent fevers and right-sided flank tenderness that been ongoing since she had a biopsy done on her kidney on 06/21. Patient states that her flank pain has improved from pre vious, states that she was not febrile today but she was advised by her outpatient provider to come to the emergency department to be assessed for systemic infection. On my initial assessment the patient is in no acute distress, IV was established, lab work obtained, urine sample was obtained, CT imaging of the abdomen pelvis was ordered. CT imaging of the abdomen pelvis shows concern for right-sided pyelitis/pyelonephritis without obstruction. Patient's lab work does show evidence of a leukocytosis, she is afebrile otherwise here in the ED. I discussed the above findings with on-call urology, Dr. Fox, recommended initiation of IV antibiotics, admission to the hospital to follow-up on blood cultures and for urology consultation. Patient was in agreement to this plan. [facility] hospitalist service was consulted for admission and the patient was admitted in stable condition for further care. Diagnosis: 1. Pyelonephritis, right-sided, recent kidney biopsy 2. Leukocytosis 3. Right flank pain 4. Fever by history Disposition: Admission Praful Chong DO Emergency Medicine Past Med/Surg History Medical History (Updated 06/26/22 @ 17:40 by Praful Chong DO) Depression Fibroids History of COVID-19 Approximately Spring 2021 HLD (hyperlipidemia) Kidney stones Renal mass Surgical History History of colonoscopy polyps History of cystoscopy History of D&C History of ear surgery History of gynecologic surgery cervical conization loop electrode excision --2004, cin2 History of laryngoscopy for polyp removal History of wisdom tooth extraction S/P ureteral stent placement Family History Mother Breast cancer Hypertension Family history of reaction to anesthesia difficulty waking (had dementia issues) Father Prostate cancer Brother Dyslipidemia Hypertension Other No pertinent family history Denies family history of Ovarian cancer Colorectal cancer Uterine cancer Social History Smoking Status: Current every day smoker Cigarettes Per Day: 10 a day; Second Hand Exposure: No; Hx Alcohol Use: No Hx Substance Use: No Preferred Language: Ug[place]an Communication Ability: Effective Junior Software Engineer Required: No Beliefs That Will Affect Care: None Current Living Situation: Alone Feels Safe at Home: Yes Assistive Devices: Glasses Allergies Allergies Allergy/AdvReac Type Severity Reaction Status Date / Time ciprofloxacin Allergy Intermediate ginaky, Verified 06/26/22 17:30 vomiting Home Meds Home Medications Medication Instructions Recorded Confirmed multivitamin (Multiple Vitamins 1 tab PO QAM 06/23/20 06/26/22 tablet) melatonin 10 mg tablet 20 mg PO HS PRN Sleep 08/11/21 06/26/22 pantoprazole 20 mg tablet,delayed 20 mg PO QAM 08/11/21 06/26/22 release sertraline 100 mg tablet 200 mg PO HS 08/11/21 06/26/22 turmeric 400 mg capsule 400 mg PO HS PRN Pain 08/11/21 06/26/22 vitamin B12 500 mcg-folic acid 400 1 tab PO DAILY PRN .SUPPLEMENT 06/26/22 06/26/22 mcg tablet Previous Rx's Medication Instructions Recorded oxycodone 5 mg tablet 5 mg PO Q6 PRN pain #8 tabs 06/21/22 Results & Data (ED) Vital Signs Vital Signs - 24 hr 06/26/22 13:45 06/26/22 15:44 Temperature 36.7 C Temperature Source Oral Pulse Rate 96 H Pulse Rate [Finger] 75 Respiratory Rate 18 18 Respiratory Effort / Characteristics Non-Labored Non-Labored Spontaneous Respiratory Depth Normal Normal Respiratory Pattern Regular Blood Pressure 149/81 H Blood Pressure [Right Arm] 115/68 Blood Pressure Mean 103 Blood Pressure Mean [Right Arm] 83 Blood Pressure Position Sitting Pulse Oximetry 95 94 Oxygen Delivery Method Room Air Room Air Sepsis Recent Fever Within 48 Hours No Sepsis New/Unexplained Change in Mental Status No Sepsis Action Taken by Nursing No Action Required Laboratory Data Result diagrams: 06/26/22 13:56 06/26/22 13:56 Lab Results 06/26/22 06/26/22 06/26/22 Range/Units 13:52 13:56 13:56 WBC 12.03 H (4.8-10.8) K/ul RBC 4.60 (3.93-5.22) M/uL Hgb 13.1 (12.0-16.0) g/dl Hct 39.4 (34.1-44.9) % MCV 85.7 (80.0-100.0) fL MCH 28.5 (25.0-34.0) pg MCHC 33.2 (32.0-36.0) g/dL RDW Std Deviation 43.2 (36.4-46.3) fL RDW Coeff of Bob 13.9 (11.5-14.5) % Plt Count 262 (130-400) K/uL MPV 10.3 (9.4-12.3) fL Immature Gran % (Auto) 0.3 % Neut % (Auto) 82.9 % Lymph % (Auto) 9.3 % [place] % (Auto) 7.3 % Eos % (Auto) 0.0 % Baso % (Auto) 0.2 % Neut # (Auto) 9.96 H (1.4-6.5) K/uL Lymph # (Auto) 1.12 L (1.2-3.4) K/uL [place] # (Auto) 0.88 H (0.24-0.82) K/uL Eos # (Auto) 0.00 (0-0.50) K/uL Baso # (Auto) 0.03 (0-0.2) K/uL Immature Gran # (Auto) 0.04 H (0.00-0.02) K/uL Sodium 137 (136-145) mmol/L Potassium 3.7 (3.5-5.1) mmol/L Chloride 102 (98-107) mmol/L Carbon Dioxide 26 (21-32) mmol/L Anion Gap 9 (3-11) BUN 14 (6-23) mg/dl Creatinine 0.63 (0.6-1.2) mg/dl Est Cr Clr Drug Dosing 79.0 ml/min Est GFR ( Amer) 108.3 ml/min Est GFR (Non-Af Amer) 93.5 ml/min BUN/Creatinine Ratio 22.2 H (10-20) Glucose 113 H (70-99(Fasting)) mg/dl Calcium 9.3 (8.5-10.1) mg/dl Total Bilirubin 0.6 (0.2-1.0) mg/dl AST 13 (13-39) U/L ALT 16 (7-52) U/L Alkaline Phosphatase 82 (34-104) U/L Total Protein 7.3 (6.0-8.3) gm/dl Albumin 4.1 (3.4-5.0) gm/dl Globulin 3.2 (2.5-4.0) gm/dl Albumin/Globulin Ratio 1.3 (0.9-2) Urine Color Urine Appearance (Clear) Urine pH (4.5-7.5) Ur Specific [place] (1.000-1.030) Urine Protein (Negative) Urine Glucose (UA) (Negative) Urine Ketones (Negative) Urine Blood (Negative) Urine Nitrite (Negative) Urine Bilirubin (Negative) Urine Urobilinogen (Negative) Ur Leukocyte Esterase (Negative) Urine WBC (Auto) (0-5) /hpf Urine RBC (Auto) (0-4) /hpf U Hyaline Cast (Auto) (0-5) /lpf U Epithel Cells (Auto) (0-5) /lpf Urine Bacteria (Auto) (Negative) SARS-CoV-2 (PCR) NEGATIVE (Negative) Influenza Type A (PCR) Negative (Neg) Influenza Type B (PCR) Negative (Neg) RSV (RT-PCR) Negative (Neg) 06/26/22 Range/Units 14:49 WBC (4.8-10.8) K/ul RBC (3.93-5.22) M/uL Hgb (12.0-16.0) g/dl Hct (34.1-44.9) % MCV (80.0-100.0) fL MCH (25.0-34.0) pg MCHC (32.0-36.0) g/dL RDW Std Deviation (36.4-46.3) fL RDW Coeff of Bob (11.5-14.5) % Plt Count (130-400) K/uL MPV (9.4-12.3) fL Immature Gran % (Auto) % Neut % (Auto) % Lymph % (Auto) % [place] % (Auto) % Eos % (Auto) % Baso % (Auto) % Neut # (Auto) (1.4-6.5) K/uL Lymph # (Auto) (1.2-3.4) K/uL [place] # (Auto) (0.24-0.82) K/uL Eos # (Auto) (0-0.50) K/uL Baso # (Auto) (0-0.2) K/uL Immature Gran # (Auto) (0.00-0.02) K/uL Sodium (136-145) mmol/L Potassium (3.5-5.1) mmol/L Chloride (98-107) mmol/L Carbon Dioxide (21-32) mmol/L Anion Gap (3-11) BUN (6-23) mg/dl Creatinine (0.6-1.2) mg/dl Est Cr Clr Drug Dosing ml/min Est GFR ( Amer) ml/min Est GFR (Non-Af Amer) ml/min BUN/Creatinine Ratio (10-20) Glucose (70-99(Fasting)) mg/dl Calcium (8.5-10.1) mg/dl Total Bilirubin (0.2-1.0) mg/dl AST (13-39) U/L ALT (7-52) U/L Alkaline Phosphatase (34-104) U/L Total Protein (6.0-8.3) gm/dl Albumin (3.4-5.0) gm/dl Globulin (2.5-4.0) gm/dl Albumin/Globulin Ratio (0.9-2) Urine Color Dark Yellow Urine Appearance Cloudy A (Clear) Urine pH 6.0 (4.5-7.5) Ur Specific [place] 1.020 (1.000-1.030) Urine Protein 1+ H (Negative) Urine Glucose (UA) Negative (Negative) Urine Ketones 2+ H (Negative) Urine Blood 1+ H (Negative) Urine Nitrite Negative (Negative) Urine Bilirubin 1+ H (Negative) Urine Urobilinogen Negative (Negative) Ur Leukocyte Esterase 3+ H (Negative) Urine WBC (Auto) >30 H (0-5) /hpf Urine RBC (Auto) 5-10 H (0-4) /hpf U Hyaline Cast (Auto) 1-5 (0-5) /lpf U Epithel Cells (Auto) >30 H (0-5) /lpf Urine Bacteria (Auto) Negative (Negative) SARS-CoV-2 (PCR) (Negative) Influenza Type A (PCR) (Neg) Influenza Type B (PCR) (Neg) RSV (RT-PCR) (Neg) Administered Medications Discontinued Medications Sodium Chloride (Nss 1000ml) 500 mls @ 999 mls/hr IV .Q31M ONE Stop: 06/26/22 15:45 Last Infusion: 06/26/22 16:17 Dose: 0 mls/hr Documented By: Admin: 06/26/22 15:46 Dose: 999 mls/hr Documented By: JUDY Ioversol (Optiray 350 100ml) 87 ml IV ONCE ONE Stop: 06/26/22 16:31 Last Admin: 06/26/22 16:30 Dose: 87 ml Documented By: [facility] Imaging Data Radiologist's Impression: Abdomen/Pelvis CT 06/26/22 15:[address] WITH IV CONTRAST CT DOSE: 513.57 mGycm HISTORY: R flank pain, recent biopsy, fever TECHNIQUE: Multiaxial CT images of the abdomen and pelvis were performed following the use of intravenous contrast. A dose lowering technique was utilized adhering to the principles of ALARA. COMPARISON STUDY: Abdomen and pelvis CT 05/10/2022. FINDINGS: Mild dependent changes seen at the lung bases. No pneumoperitoneum. No pneumatosis. No suspicious lytic or blastic osseous lesions. The liver, gallbladder, pancreas, and spleen are unremarkable. Stable bilateral adrenal gland nodules. The largest on the left measures 15 mm. The main portal vein is patent. Calcified plaque within the normal caliber abdominal aorta. No retroperitoneal or pelvic lymphadenopathy. Multifocal scarring within the left kidney persists. 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 Mild fullness within the upper pole moiety has improved. The urothelial thicken ing within the left upper pole moiety has also improved. Bilateral nephrolithiasis again noted. No ureteral stones. No hydronephrosis. The bladder is underdistended. This may account for the bladder wall thickening. Interval development of mild right perinephric edema/fat stranding with patchy heter ogeneous enhancement within the right kidney. There is also urothelial thickening within the right renal pelvis and right ureter. These findings likely represent a right-sided pyelitis/pyelonephritis. Stable 4.4 cm exophytic mass within the uterus. This favors a fibroid. Colonic diverticulosis. No evidence for acute diverticulitis. No bowel wall thickening or obstruction. The visualized appendix is unremarkable. IMPRESSION: 1. Interval development of mild right perinephric edema/fat stranding with patchy heterogeneous enhancement within the right kidney. There is also urothelial thickening within the right renal pelvis and right ureter. These findings likely represent a right-sided pyelitis/pyelonephritis. 2. Near-complete resolution of the mild fullness and urothelial thickening within the upper pole moiety of the duplicated left renal collecting system. 3. Bilateral nephrolithiasis. No ureteral stones. No hydronephrosis. 4. Additional findings as described above. ACT 112: Negative or not required by law. Electronically signed by: Abhinav Paige M.D. 06/26/2022 4:47 PM Discharge Plan Visit Data Chief Complaint: Fever Stated Complaint: FEVER, NAUSEA, HEADACHE ED Provider: Praful Chong Discharge Problem: Acute pyelonephritis Forms Stand Alone Forms: [facility] Prescriptions Prescriptions: No Action multivitamin [Multiple Vitamins] Tablet 1 tab PO QAM oxycodone 5 mg tablet 5 mg PO Q6 PRN (Reason: pain) Qty: 8 0RF Rx Instructions: for acute post surgical pain not managed by tylenol/ibuprofen sertraline 100 mg Tablet 200 mg PO HS pantoprazole 20 mg Tablet,Delayed Release (Dr/Ec) 20 mg PO QAM melatonin 10 mg Tablet 20 mg PO HS PRN (Reason: Sleep) turmeric 400 mg Capsule 400 mg PO HS PRN (Reason: Pain) vitamin A64-rndxp acid 500-400 mcg Tablet 1 tab PO DAILY PRN (Reason: .SUPPLEMENT) Rx Instructions: administer with a meal Referrals Referrals: Darwin Archer MD [Primary Care Provider] -
[2022-06-26] MEDS ORDERED: OPTIRAY 350 100ml IV ONE (16:30)
--- NOTE | 2022-06-26 16:50 | CT Scan Report ---
ABDOMEN AND PELVIS CT WITH IV CONTRAST CT DOSE: 513.57 mGycm HISTORY: R flank pain, recent biopsy, fever TECHNIQUE: Multiaxial CT images of the abdomen and pelvis were performed following the use of intrave nous contrast. A dose lowering technique was utilized adhering to the principles of ALARA. COMPARISON STUDY: Abdomen and pelvis CT 05/10/2022. FINDINGS: Mild dependent changes seen at the lung bases. No pneumoperitoneum. No pneumatosis. No susp icious lytic or blastic osseous lesions. The liver, gallbladder, pancreas, and spleen are unremarkabl e. Stable bilateral adrenal gland nodules. The largest on the left measures 15 mm. The main portal ve in is patent. Calcified plaque within the normal caliber abdominal aorta. No retroperitoneal or pelvi c lymphadenopathy. Multifocal scarring within the left kidney persists. 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 Mild fullness within the upper pole moiety has improved. The uroth elial thickening within the left upper pole moiety has also improved. Bilateral nephrolithiasis again noted. No ureteral stones. No hydronephrosis. The bladder is underdistended. This may account for th e bladder wall thickening. Interval development of mild right perinephric edema/fat stranding with pa tchy heterogeneous enhancement within the right kidney. There is also urothelial thickening within th e right renal pelvis and right ureter. These findings likely represent a right-sided pyelitis/pyelone phritis. Stable 4.4 cm exophytic mass within the uterus. This favors a fibroid. Colonic diverticulosi s. No evidence for acute diverticulitis. No bowel wall thickening or obstruction. The visualized appe ndix is unremarkable. IMPRESSION: 1. Interval development of mild right perinephric edema/fat stranding with patchy heterogeneous enhan cement within the right kidney. There is also urothelial thickening within the right renal pelvis and right ureter. These findings likely represent a right-sided pyelitis/pyelonephritis. 2. Near-complete resolution of the mild fullness and urothelial thickening within the upper pole moie ty of the duplicated left renal collecting system. 3. Bilateral nephrolithiasis. No ureteral stones. No hydronephrosis. 4. Additional findings as described above. ACT 112: Negative or not required by law. Electronically signed by: Abhinav Paige M.D. 06/26/2022 4:47 PM
[2022-06-26] MEDS ORDERED: cefTRIAXone SODIUM 2,000 MG/70 ML BAG IV STA (17:23)
--- NOTE | 2022-06-26 18:07 | History & Physical Report ---
Date of Service June 26, 2022 Assessment & Plan (1) Acute pyelonephritis: Plan: Patient is abdomen abnormal urinalysis and CT scan suggestive of right pyelonephritis. Patient has not had previous resistant organisms given dose of ceftriaxone 2 g IV in the ER Patient be continued on parenteral pain control nausea control and Normosol hydration Urology consultation will be added (2) Depression: Plan: Patient continues sertraline 20 mg a day Plan With concern for urothelial malignancy and pyelonephritis patient will be given enoxaparin as DVT prevention Continue Protonix for GERD history and symptoms History of Present Illness Primary Care Provider: Darwin Archer MD Patient presents with progressive right flank pain and fevers at home. Patient underwent a cystoscopy and excisional biopsy of a right renal lesion on June [address] Coppola. This was due to a filling defect and urine cytology suggestive of urothelial carcinoma. Pathology from the shows biopsy suggestive of small low-grade papillary and urothelial carcinoma. Patient is CT scan of abdomen pelvis showing right-sided pyelonephritis with perinephric fluid and edema of the kidney Urology on-call was contacted and recommended admission of the patient. Patient received ceftriaxone 2 g in the ER urine and blood cultures were sent. White count is 12 Allergies Allergy/AdvReac Type Severity Reaction Status Date / Time ciprofloxacin Allergy Intermediate ginaky, Verified 06/26/22 17:30 vomiting Home Medications Medication Instructions Recorded Confirmed Type multivitamin (Multiple Vitamins 1 tab PO QAM 06/23/20 06/26/22 History tablet) melatonin 10 mg tablet 20 mg PO HS PRN Sleep 08/11/21 06/26/22 History pantoprazole 20 mg tablet,delayed 20 mg PO QAM 08/11/21 06/26/22 History release sertraline 100 mg tablet 200 mg PO HS 08/11/21 06/26/22 History turmeric 400 mg capsule 400 mg PO HS PRN Pain 08/11/21 06/26/22 History oxycodone 5 mg tablet 5 mg PO Q6 PRN pain #8 tabs 06/21/22 06/26/22 Rx vitamin B12 500 mcg-folic acid 400 1 tab PO DAILY PRN .SUPPLEMENT 06/26/22 06/26/22 History mcg tablet Past Med/Surg History Medical History (Updated 06/26/22 @ 18:05 by Tevin Ambrocio MD) Depression Fibroids History of COVID-19 Approximately Spring 2021 HLD (hyperlipidemia) Kidney stones Renal mass Surgical History History of colonoscopy polyps History of cystoscopy History of D&C History of ear surgery History of gynecologic surgery cervical conization loop electrode excision --2004, cin2 History of laryngoscopy for polyp removal History of wisdom tooth extraction S/P ureteral stent placement Family History Mother Breast cancer Hypertension Family history of reaction to anesthesia difficulty waking (had dementia issues) Father Prostate cancer Brother Dyslipidemia Hypertension Other No pertinent family history Denies family history of Ovarian cancer Colorectal cancer Uterine cancer Social History Smoking Status: Current every day smoker Cigarettes Per Day: 10 a day; Second Hand Exposure: No; Hx Alcohol Use: No Hx Substance Use: No Preferred Language: Lithuanian Communication Ability: Effective Chief Data Officer Required: No Beliefs That Will Affect Care: None Current Living Situation: Alone Feels Safe at Home: Yes Assistive Devices: Glasses Review of Systems Review of Systems: Mild distress and fatigue no headache, no visual changes no speech or swallowing issues no chest pain, pressure or palpitations no shortness of breath, cough or wheezes Mild right-sided abdominal pain to her flank no nausea vomiting diarrhea constipation no dysuria, hematuria or frequency no focal joint pain or swelling no back pain, mild right CVA tenderness but no other radicular pain no bruising, bleeding or rashes no focal signs of weakness or numbness or altered sensation no complaints of anxiety or depression.. Physical Exam Physical Exam: The patient appeared well nourished and normally developed. Vital signs as documented. Head exam is normocephalic atraumatic Neck is without JVD, thyromegaly, or carotid bruits. Lungs are clear to auscultation, no focal loss of breath sounds Cardiac exam, Rhythm is regular.. No murmurs, rubs or gallops. Abdominal exam reveals normal bowel sounds, soft non Mild tenderness on the right and right CVA angle tenderness Extremities are nonedematous and both pedal pulses are present Neurologic exam is alert and oriented, no focal loss of strength or sensation Skin is without bruises or rashes Psychologically is without concerns for anxiety or depression.. Results & Data Results & Data ([facility]) Vital Signs (Past 12 Hours) Vital Signs Temp Pulse Pulse Resp BP BP Pulse Ox 06/26/22 15:44 75 18 115/68 94 06/26/22 13:45 98.1 F 96 H 18 149/81 H 95 O2 Del Method 06/26/22 15:44 Room Air 06/26/22 13:45 Room Air Diagnostic Findings Abdomen/Pelvis CT 06/26/22 15:[address] WITH IV CONTRAST CT DOSE: 513.57 mGycm HISTORY: R flank pain, recent biopsy, fever TECHNIQUE: Multiaxial CT images of the abdomen and pelvis were performed following the use of intravenous contrast. A dose lowering technique was utilized adhering to the principles of ALARA. COMPARISON STUDY: Abdomen and pelvis CT 05/10/2022. FINDINGS: Mild dependent changes seen at the lung bases. No pneumoperitoneum. No pneumatosis. No suspicious lytic or blastic osseous lesions. The liver, gallbladder, pancreas, and spleen are unremarkable. Stable bilateral adrenal gland nodules. The largest on the left measures 15 mm. The main portal vein is patent. Calcified plaque within the normal caliber abdominal aorta. No retroperitoneal or pelvic lymphadenopathy. Multifocal scarring within the left kidney persists. 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 Mild fullness within the upper pole moiety has improved. The urothelial thickening within the left upper pole moiety has also improved. Bilateral nephrolithiasis again noted. No ureteral stones. No hydronephrosis. The bladder is underdistended. This may account for the bladder wall thickening. Interval development of mild right perinephric edema/fat stranding with patchy heterogeneous enhancement within the right kidney. There is also urothelial thickening within the right renal pelvis and right ureter. These findings likely represent a right-sided pyelitis/pyelonephritis. Stable 4.4 cm exophytic mass within the uterus. This favors a fibroid. Colonic diverticulosis. No evidence for acute diverticulitis. No bowel wall thickening or obstruction. The visualized appendix is unremarkable. IMPRESSION: 1. Interval development of mild right perinephric edema/fat stranding with patchy heterogeneous enhancement within the right kidney. There is also urothelial thickening within the right renal pelvis and right ureter. These findings likely represent a right-sided pyelitis/pyelonephritis. 2. Near-complete resolution of the mild fullness and urothelial thickening within the upper pole moiety of the duplicated left renal collecting system. 3. Bilateral nephrolithiasis. No ureteral stones. No hydronephrosis. 4. Additional findings as described above. Electronically signed by: Abhinav Paige M.D. 06/26/2022 4:47 PM PG Care Time/CCT Total # of Minutes Spent Total Time Spent with Patient: Total time spent is greater than 50% in coordination of care (as documented) at patient's floor/unit and/or counseling patient: Coding Level of Care Code 08948 Initial Inpt Care Lvl 2 Diagnoses Acute pyelonephritis N10 Depression F32.A
[2022-06-26] MEDS ORDERED: NON-FORMULARY MEDICATION (Melatonin 10 mg Tablet) PO PRN (19:41)
[2022-06-26] MEDS ORDERED: ONDANSETRON INJ 2 MG/ML 2 ML VIAL IV PRN (19:41)
[2022-06-26] MEDS ORDERED: ALUMINUM/MAGNESIUM SUSP 30 ML UDC PO PRN (19:41)
[2022-06-26] MEDS ORDERED: HYDROmorphone INJ 0.5 MG/0.5 ML SYR IV PRN (19:41)
[2022-06-26] MEDS ORDERED: oxyCODONE HCL IR 5 MG TAB (IMMEDIATE RELEASE) PO PRN (19:41)
[2022-06-26] MEDS ORDERED: HYDROmorphone INJ 1 MG/ML SYRINGE IV PRN (19:41)
[2022-06-26] MEDS ORDERED: ACETAMINOPHEN 325 MG TAB PO PRN (19:41)
[2022-06-26] MEDS ORDERED: FOLIC ACID 400 MCG TAB PO PRN (19:51)
[2022-06-26] MEDS ORDERED: CYANOCOBALAMIN (B-12) 500 MCG TABLET PO PRN (19:52)
[2022-06-26] MEDS: NORMOSOL-R 1,000 ML IV SCH (20:50)
[2022-06-26] MEDS: SERTRALINE HCL 100 MG TABLET PO SCH (20:51)
[2022-06-26] MEDS: ENOXAPARIN INJ 40 MG/0.4 ML SYR SQ SCH (20:51)
[2022-06-26] MEDS: MELATONIN 3 MG TAB PO PRN (23:16)
[2022-06-27] MEDS: NORMOSOL-R 1,000 ML IV SCH ×2 (04:52→14:24)
[2022-06-27 06:33] LABS: Hematocrit (blood only) 33.4 % (34.1-44.9); Hemoglobin 11.2 g/dl (12.0-16.0); Mean Corpuscular Hemoglobin 28.4 pg (25.0-34.0); Mean Corpuscular Hgb Conc 33.5 g/dL (32.0-36.0); Mean Corpuscular Volume 84.8 fL (80.0-100.0); Mean Platelet Volume 10.5 fL (9.4-12.3); Platelet Count 236 K/uL (130-400); RDW Coefficient of Variation 13.7 % (11.5-14.5); RDW Standard Deviation 42.5 fL (36.4-46.3); Red Blood Count 3.94 M/uL (3.93-5.22); White Blood Count 9.57 K/ul (4.8-10.8)
[2022-06-27 07:04] LABS: BUN Creatinine Ratio 17.5 (10-20); Calcium 8.4 mg/dl (8.5-10.1); Creatinine Clr Calc Pharmacy 87.2 ml/min; Est GFR (Non-African American) 96.6 ml/min; Magnesium 1.8 mg/dl (1.7-2.4); Potassium 3.4 mmol/L (3.5-5.1)
[2022-06-27] MEDS: PANTOprazole 40 MG TAB PO SCH (07:56)
[2022-06-27] MEDS: MULTIVITAMIN TAB PO SCH (07:56)
[2022-06-27] MEDS: POTASSIUM CHLORIDE CRTAB 20 MEQ TABCR PO SCH ×3 (10:43→21:05)
--- NOTE | 2022-06-27 12:16 | Urology Consultation ---
Date of Consultation June 27, 2022 Assessment & Plan (1) Acute pyelonephritis: She remains hemodynamically stable with improving labs. Overall she is feeling better on antibiotics. Blood and urine cultures are pending. Once these are available would be reasonable to switch her to oral antibiotics in anticipation of discharge. I do not appreciate any obstruction on CT scan and do not think placement of the ureteral stent is needed at this time. I think there is adequate source control, assuming this is from a urinary source. (2) Kidney filling defect: We reviewed the results of her recent ureteroscopy and biopsy. We reviewed that her pathology is suggestive of a low-grade urothelial carcinoma. At the end of the surgery there was no evidence of disease remaining. We will need to have ongoing surveillance of this. We will plan to meet up in the office in the next couple months to coordinate repeat imaging or ureteroscopy for evaluation for tumor recurrence. Plan Continue broad-spectrum antibiotics for now, narrow coverage as culture data becomes available. No need for urologic intervention at this point We will arrange outpatient follow-up for surveillance of her suspected upper tract urothelial carcinoma History of Present Illness Reason for Consultation: UTI Attending Physician: Paras Pelayo History of Present Illness This is a 66-year-old female followed by urology for nephrolithiasis and recently brought to the OR for ureteroscopy with biopsy of a filling defect. Postoperatively she had some pain on the right side for couple days. The pain gradually improved, but then she started having fevers up to 102-103. She was trying to manage this at home, but eventually called the urology office who recommended she proceed to the emergency department for evaluation. In the emergency department she had a mild leukocytosis (12.03). Electrolytes and creatinine were within normal limits. Urinalysis was notable for 1+ blood, 3+ leukocyte esterase, negative bacteria, positive epithelial cells. Blood and urine cultures were obtained and are still pending. A CT scan was performed. I independently reviewed these images. Both kidneys are normal position. There are nonobstructing stones bilaterally. There is s ome thickening of the right renal pelvis and right ureter, likely consistent with recent instrumentation. Her bladder appears grossly normal. Urology was consulted possible pyelonephritis in the setting of recent instrumentation. At the bedside she reports that she is feeling better than she was a couple days ago. She reports having fever overnight. She denies any nausea or vomiting. She denies any flank pain. Allergies Allergy/AdvReac Type Severity Reaction Status Date / Time ciprofloxacin Allergy Intermediate lucía, Verified 06/26/22 17:30 vomiting Home Medications Medication Instructions Recorded Confirmed Type multivitamin (Multiple Vitamins 1 tab PO QAM 06/23/20 06/26/22 History tablet) melatonin 10 mg tablet 20 mg PO HS PRN Sleep 08/11/21 06/26/22 History pantoprazole 20 mg tablet,delayed 20 mg PO QAM 08/11/21 06/26/22 History release sertraline 100 mg tablet 200 mg PO HS 08/11/21 06/26/22 History turmeric 400 mg capsule 400 mg PO HS PRN Pain 08/11/21 06/26/22 History oxycodone 5 mg tablet 5 mg PO Q6 PRN pain #8 tabs 06/21/22 06/26/22 Rx vitamin B12 500 mcg-folic acid 400 1 tab PO DAILY PRN .SUPPLEMENT 06/26/22 06/26/22 History mcg tablet Patient History Medical History (Updated 06/26/22 @ 18:05 by Tevin Ambrocio MD) Depression Fibroids History of COVID-19 Approximately Spring 2021 HLD (hyperlipidemia) Kidney stones Renal mass Surgical History History of colonoscopy polyps History of cystoscopy History of D&C History of ear surgery History of gynecologic surgery cervical conization loop electrode excision --2004, cin2 History of laryngoscopy for polyp removal History of wisdom tooth extraction S/P ureteral stent placement Family History Mother Breast cancer Hypertension Family history of reaction to anesthesia difficulty waking (had dementia issues) Father Prostate cancer Brother Dyslipidemia Hypertension Other No pertinent family history Denies family history of Ovarian cancer Colorectal cancer Uterine cancer Social History Smoking Status: Current every day smoker Cigarettes Per Day: 1 pack/day; Second Hand Exposure: No; Do You Dip or Chew Tobacco: No; Tobacco Cessation Education Requested by Patient: No Hx Alcohol Use: No Hx Substance Use: No Preferred Language: Kosovan Communication Ability: Effective Supervisor Pastry Required: No Beliefs That Will Affect Care: Jew Jew Beliefs: Christianity Current Living Situation: Alone Current Living Situation Comment: lives with dog Other Information That Helps Us Care for You: No Feels Safe at Home: Yes Safety Concerns: Feels Safe At This Time Assistive Devices: None Review of Systems Review of Systems: 14 point review of systems negative except for otherwise indicated. Physical Exam Constitutional: well developed and well nourished; no acute distress Eyes: + anicteric sclerae; pupils not irregular Respiratory: normal respiratory effort; no respiratory distress, does not use accessory muscles and no cough Cardiovascular: well perfused Gastrointestinal (Abdomen): Inspection/Auscultation: abdomen normal to inspection; abdomen not distended Musculoskeletal: Extremities: extremities normal to inspection Skin: normal turgor; no rashes and no lesions Neurologic: moves all extremities and awake Psychiatric: Orientation: alert and oriented x 3 Results & Data ([facility]) Vital Signs (Past 12 Hours) Vital Signs Temp Pulse Resp BP Pulse Ox O2 Del Method 06/27/22 07:54 37.2 C 61 16 122/63 94 Room Air PG Care Time/CCT Total # of Minutes Spent Total Time Spent with Patient: Total time spent is greater than 50% in coordination of care (as documented) at patient's floor/unit and/or counseling patient: Coding Level of Care Code 62359 Initial Inpt Care Lvl 2 Diagnoses Acute pyelonephritis N10 Kidney filling defect R93.429
--- NOTE | 2022-06-27 16:00 | XRay Report ---
XR chest 2V PA/lateral HISTORY: 66 years-old Female b/l basilar rales acute shortness of breath with bibasilar opacities COMPARISON: CT abdomen and pelvis 06/26/2022, Chest radiograph 06/14/2022 TECHNIQUE: PA and lateral views of the chest FINDINGS: Cardiac silhouette is enlarged. Atherosclerosis of the aorta. Mild chronic interstitial coarsening. N o pneumothorax, large pleural effusion or lobar airspace consolidation. Mild linear right basilar ate lectasis/scarring. Mild blunting of the costophrenic angles. Bones appear grossly intact. IMPRESSION: Cardiomegaly without acute process. ACT 112: Negative or not required by law. The above report was generated using voice recognition software. It may contain grammatical, syntax o r spelling errors. Electronically signed by: Jared Malin M.D. 06/27/2022 3:59 PM
[2022-06-27] MEDS ORDERED: cefTRIAXone SODIUM 2,000 MG in DEXTROSE 5% 50 ML IV SCH (18:00)
--- NOTE | 2022-06-27 20:35 | Hospitalist Progress Note ---
Date of Service June 27, 2022 Assessment & Plan (1) Acute pyelonephritis: Plan: right-sided - seen radiographically on admission CT continue current IV abx continue IV fluids pain meds prn (2) Depression: Plan: cont home meds (3) GERD (gastroesophageal reflux disease): Plan: cont PPI (4) Urothelial cancer: Plan: 06/21/22 - s/p cystoscopy by Dr Coppola small papillary masses found in the right renal pelvis s/p biopsy biopsy c/w low-grade papillary urothelial cancer to have f/u with [facility] Urology post-d/c for ongoing Rx (5) DVT prophylaxis: Plan: lovenox daily (6) Abnormal lung sounds: Plan: b/l rales -- edema? atelectasis? other? cxr ordered f/u after results return Admission and Anticipated Discharge Date Admission Date: June 26, 2022 Subjective patient feels better today vs time of ER presentation eating improved still some "pressure" over her bladder/lower abdomen no flank pain or back pain anxious about all of the things going on including her cancer diagnosis ambulating no dyspnea Review of Systems Review of Systems: gen - no fevers or chills cv - no cp pulm - no REYES GI - no nausea/emesis Physical Exam Physical Exam: gen - NAD, nontoxic mouth - MM slightly dry neck - no JVD heart - RRR, s1 s2 lungs - mild b/l basilar rales, no wheeze abd - soft, no flank tenderness, BS+, mild suprapubic discomfort ext - no edema, pulses 2+ b/l Results & Data Results & Data ([facility]) Vital Signs (Past 12 Hours) Vital Signs Temp Pulse Resp BP Pulse Ox O2 Del Method 06/27/22 15:12 37.3 C 71 16 117/65 94 Room Air Laboratory Results blood/urine cx's thus far negative PG Care Time/CCT Total # of Minutes Spent Total Time Spent with Patient: Total time spent is greater than 50% in coordination of care (as documented) at patient's floor/unit and/or counseling patient: Coding Level of Care Code 07639 Subseq Hosp Care Lvl 2 Diagnoses Acute pyelonephritis N10 Depression F32.A GERD (gastroesophageal reflux disease) K21.9 Urothelial cancer C68.9 DVT prophylaxis Z29.9 Abnormal lung sounds R09.89
[2022-06-27] MEDS: ENOXAPARIN INJ 40 MG/0.4 ML SYR SQ SCH (21:05)
[2022-06-27] MEDS: SERTRALINE HCL 100 MG TABLET PO SCH (21:05)
[2022-06-27] MEDS: MELATONIN 3 MG TAB PO PRN (22:20)
[2022-06-28] MEDS: NORMOSOL-R 1,000 ML IV SCH (02:16)
[2022-06-28 08:21] LABS: Hematocrit (blood only) 33.2 % (34.1-44.9); Hemoglobin 10.9 g/dl (12.0-16.0); Mean Corpuscular Hemoglobin 28.2 pg (25.0-34.0); Mean Corpuscular Hgb Conc 32.8 g/dL (32.0-36.0); Mean Platelet Volume 10.4 fL (9.4-12.3); Platelet Count 253 K/uL (130-400); RDW Coefficient of Variation 13.6 % (11.5-14.5); RDW Standard Deviation 42.8 fL (36.4-46.3); Red Blood Count 3.86 M/uL (3.93-5.22); White Blood Count 6.19 K/ul (4.8-10.8)
--- NOTE | 2022-06-28 08:42 | Urology Progress Note ---
Date of Service June 28, 2022 Assessment & Plan (1) Acute pyelonephritis: Plan: Doing well on broad-spectrum antibiotics. Urine cultures showing gram-positive cocci, final speciation is still pending. Once culture data is available she should be ready to switch to oral antibiotics. I would recommend approximately 1 week of antibiotic coverage, but this can be done at home. No need for urologic intervention at this time. Urology will sign off for now, please call with any questions or concerns. We will arrange further outpatient follow-up for surveillance of her suspected upper tract urothelial carcinoma. Admission and Anticipated Discharge Date Admission Date: June 26, 2022 Subjective Feeling well, still a couple sweats at night. Denies any flank pain WBC 6.19, creatinine pending Blood cultures negative for 24 hours. Urine growing gram-positive cocci, speciation and sensitivity pending. Physical Exam Physical Exam: Well-appearing, NAD Respiratory: Breathing comfortably on room air Results & Data ([facility]) Vital Signs (Past 12 Hours) Vital Signs Temp Pulse Resp BP Pulse Ox O2 Del Method 06/28/22 07:20 36.9 C 62 16 133/72 94 Room Air 06/27/22 23:07 37 C 64 14 110/64 95 Room Air PG Care Time/CCT Total # of Minutes Spent Total Time Spent with Patient: Total time spent is greater than 50% in coordination of care (as documented) at patient's floor/unit and/or counseling patient: Coding Level of Care Code 84095 Subseq Hosp Care Lvl 1 Diagnoses Acute pyelonephritis N10
[2022-06-28 08:47] LABS: BUN Creatinine Ratio 21.6 (10-20); Calcium 8.6 mg/dl (8.5-10.1); Creatinine Clr Calc Pharmacy 97.5 ml/min; Est GFR (African American) 116.1 ml/min; Est GFR (Non-African American) 100.2 ml/min; Magnesium 1.8 mg/dl (1.7-2.4)
[2022-06-28] MEDS: PANTOprazole 40 MG TAB PO SCH (09:28)
[2022-06-28] MEDS: MULTIVITAMIN TAB PO SCH (09:28)
[2022-06-28] MEDS: POTASSIUM CHLORIDE CRTAB 20 MEQ TABCR PO SCH (09:28)
[2022-06-28] MEDS ORDERED: VANCOMYCIN CONSULT ACTIVE PRN (10:27)
--- NOTE | 2022-06-28 11:19 | Pharmacy Report ---
Pharmacy Vanc AUC Short Note - Date of Service June 28, 2022 - Assessment & Plan Assessment 66 year old F receiving IV vancomycin for treatment of UTI, pyelonephritis. Pertinent microbiologic data includes: * urine culture is growing gram positive cocci * no growth in blood culture bottles Day # 1 of antimicrobial therapy. Plan Vancomycin * Loading dose: 1500 mg IV x 1 * Maintenance dose: 1000 mg IV q12h * AUC/CHAPARRO is the preferred PK/PD target for vancomycin * AUC guided dosing is effective and associated with decreased risk of nephrotoxicity compared to traditional trough targets * Trough level of 13.6 mcg/mL is predicted to achieve target AUC/CHAPARRO of 400-600 mg/L.hr and may be associated with a 9 % risk of nephrotoxicity * Trough or random level ordered prior for 06/30/22 or sooner if the renal function changes Pharmacy will continue to follow and will adjust dose/frequency as necessary. Thank you.
[2022-06-28] MEDS ORDERED: VANCOMYCIN HCL 1,500 MG in SODIUM CHLORIDE 0.9% 500 ML IV ONE (11:30)
[2022-06-28] MEDS: MECLIZINE 12.5 MG TAB PO SCH ×2 (15:12→19:52)
[2022-06-28] MEDS: ENOXAPARIN INJ 40 MG/0.4 ML SYR SQ SCH (19:52)
[2022-06-28] MEDS: SERTRALINE HCL 100 MG TABLET PO SCH (19:52)
--- NOTE | 2022-06-28 19:53 | Hospitalist Progress Note ---
Date of Service June 28, 2022 Assessment & Plan (1) Acute pyelonephritis: Plan: right-sided - seen radiographically on admission CT urine culture growing GPC need to cover for enterococcus thus, stop cephalosporin change to IV vanco follow-up on cultures tomorrow blood cx's fortunately are neg to date (2) Depression: Plan: cont home meds (3) GERD (gastroesophageal reflux disease): Plan: cont PPI (4) Urothelial cancer: Plan: 06/21/22 - s/p cystoscopy by Dr Coppola small papillary masses found in the right renal pelvis s/p biopsy biopsy c/w low-grade papillary urothelial cancer to have f/u with [facility]rology post-d/c for ongoing surveillance (5) DVT prophylaxis: Plan: lovenox daily (6) Abnormal lung sounds: Plan: b/l rales - cxr ordered and returned normal no evidence pulmonary edema, etc (7) Tobacco dependence: Plan: smoking cessation counseling (8) Vertigo: Plan: chronic, intermittent for years sounds like BPV symptoms brought on by head movements has never used antivert will start antivert 12.5mg TID scheduled re-eval tomorrow (9) Dyspnea: Plan: she blames her symptoms on anxiety but I cannot rule out underlying COPD from smoking can't rule out atypical symptoms of coronary ischemia advised she f/u with PCP and consider outpatient stress test, PFTs, etc Plan updated her son, Eulogio, by phone - he lives in [place] [phone] discussed recent biopsy results of R sided urothelial cancer UTI/pyelo treatment plan etc questions answered home tomorrow? Admission and Anticipated Discharge Date Admission Date: June 26, 2022 Subjective overall feels very good except for brief, <30 second episodes of vertigo she has had chronic, intermittent vertigo "for years" previously saw ENT Dr Patino for ear issues has chronic hearing loss from L ear and also what sounds like a chronic perforated ear drum on left head movements cause the vertigo to come on no tinnitus no nausea/emesis voiding well pressure over bladder resolved asks that I contact her son, Eulogio, to discuss her hospitalization Review of Systems Review of Systems: gen - no fevers or chills cv - no cp pulm - has occasional episodes of acute dyspnea at home - no true chest pain - blames the episodes on anxiety GI - no abd pain or flank pain - no dysuria Physical Exam Physical Exam: gen - NAD, nontoxic, looks good mouth - MMM neck - no JVD heart - RRR, s1 s2, no murmur lungs - mild b/l dry basilar rales - no change; no wheeze abd - soft, no flank tenderness, BS+, suprapubic discomfort resolved ext - no edema, pulses 2+ b/l Results & Data Results & Data ([facility]) Vital Signs (Past 12 Hours) Vital Signs Temp Pulse Resp BP Pulse Ox O2 Del Method 06/28/22 16:15 36.9 C 69 16 131/81 96 Room Air Laboratory Results Laboratory Results - last 24 hr 06/28/22 06/28/22 07:03 07:03 WBC 6.19 RBC 3.86 L Hgb 10.9 L Hct 33.2 L MCV 86.0 MCH 28.2 MCHC 32.8 RDW Std Deviation 42.8 RDW Coeff of Bob 13.6 Plt Count 253 MPV 10.4 Sodium 141 Potassium 4.0 Chloride 108 H Carbon Dioxide 28 Anion Gap 5 BUN 11 Creatinine 0.51 L Est Cr Clr Drug Dosing 97.5 Est GFR ( Amer) 116.1 Est GFR (Non-Af Amer) 100.2 BUN/Creatinine Ratio 21.6 H Glucose 97 Calcium 8.6 Magnesium 1.8 Diagnostic Findings urine cx - >100,000 CFU GPC blood cx's negative PG Care Time/CCT Total # of Minutes Spent Total Time Spent with Patient: Total time spent is greater than 50% in coordination of care (as documented) at patient's floor/unit and/or counseling patient: Coding Level of Care Code 05610 Subseq Hosp Care Lvl 3 Diagnoses Acute pyelonephritis N10 Depression F32.A GERD (gastroesophageal reflux disease) K21.9 Urothelial cancer C68.9 DVT prophylaxis Z29.9 Abnormal lung sounds R09.89 Tobacco dependence F17.200 Vertigo R42 Dyspnea R06.00
[2022-06-28] MEDS: MELATONIN 3 MG TAB PO PRN (22:29)
[2022-06-28] MEDS ORDERED: VANCOMYCIN HCL 1,000 MG in SODIUM CHLORIDE 0.9% 250 ML IV SCH (23:30)
[2022-06-29] MEDS: MECLIZINE 12.5 MG TAB PO SCH ×2 (08:32→13:51)
[2022-06-29] MEDS: PANTOprazole 40 MG TAB PO SCH (08:33)
[2022-06-29] MEDS: MULTIVITAMIN TAB PO SCH (08:33)
[2022-06-29 08:50] LABS: BUN Creatinine Ratio 21.1 (10-20); Calcium 9.1 mg/dl (8.5-10.1); Creatinine Clr Calc Pharmacy 87.2 ml/min; Est GFR (Non-African American) 96.6 ml/min
[2022-06-29] MEDS ORDERED: AMOXICILLIN 500 MG CAP PO SCH ×2 (09:00→14:00)
[2022-06-29] MEDS ORDERED: AMOXICILLIN 500 MG CAP PO ONE (12:00)
--- NOTE | 2022-06-30 05:59 | Electrocardiogram Report ---
Test Reason : Blood Pressure : / mmHG Vent. Rate : 073 BPM Atrial Rate : 073 BPM P-R Int : 120 ms QRS Dur : 092 ms QT Int : 376 ms P-R-T Axes : 038 061 028 degrees QTc Int : 414 ms Poor data quality, interpretation may be adversely affected Sinus rhythm Incomplete right bundle branch block Borderline ECG When compared with ECG of 12-AUG-2021 14:34, No significant change Confirmed by Troy Berger ([id number]) on 06/30/2022 5:59:35 AM Referred By: Kuldip Coppola Confirmed By:Troy Berger
[2022-06-30] MEDS ORDERED: VANCOMYCIN LEVEL SCH (10:00)
--- NOTE | 2022-06-30 16:40 | Electrocardiogram Report ---
Test Reason : Blood Pressure : / mmHG Vent. Rate : 072 BPM Atrial Rate : 072 BPM P-R Int : 120 ms QRS Dur : 084 ms QT Int : 384 ms P-R-T Axes : 036 069 028 degrees QTc Int : 420 ms Normal sinus rhythm Normal ECG When compared with ECG of 29-JUN-2022 11:13, No significant change was found Confirmed by Jameson Mckeon ([id number]) on 06/30/2022 4:40:26 PM Referred By: Kuldip Coppola Confirmed By:Jameson Mckeon
--- NOTE | 2022-07-06 15:10 | Discharge Summary ---
Date of Service date of admission - June 26, 2022 date of discharge - June 29, 2022 Admission HPI Per Admitting Provider 66yo female presents with progressive right flank pain and fevers at home. Patient underwent a cystoscopy and excisional biopsy of a right renal lesion on June [address] Coppola. This was due to a filling defect and urine cytology suggestive of urothelial carcinoma. Pathology from the June 21 biopsy was consistent with a small low-grade papillary urothelial carcinoma. CT scan of abdomen/pelvis showed right-sided pyelonephritis with perinephric fluid and edema of the kidney. Urology on-call was contacted and recommended admission and IV antibiotic therapy. Principal Diagnosis Right-sided pyelonephritis Discharge Exam gen - NAD, nontoxic, looks very good mouth - MMM neck - no JVD heart - RRR, s1 s2, no murmur lungs - minimal b/l dry basilar rales - no change from prior exam; no wheeze abd - soft, no flank tenderness, BS+, suprapubic discomfort resolved ext - no edema, pulses 2+ b/l Discharge Data Allergies Allergy/AdvReac Type Severity Reaction Status Date / Time ciprofloxacin Allergy Intermediate shaky, Verified 06/26/22 17:30 vomiting Consultations [facility] Ordered Studies Abdomen/Pelvis CT 06/26/22 15:[address] WITH IV CONTRAST CT DOSE: 513.57 mGycm HISTORY: R flank pain, recent biopsy, fever TECHNIQUE: Multiaxial CT images of the abdomen and pelvis were performed following the use of intravenous contrast. A dose lowering technique was utilized adhering to the principles of ALARA. COMPARISON STUDY: Abdomen and pelvis CT 05/10/2022. FINDINGS: Mild dependent changes seen at the lung bases. No pneumoperitoneum. No pneumatosis. No suspicious lytic or blastic osseous lesions. The liver, gallbladder, pancreas, and spleen are unremarkable. Stable bilateral adrenal gland nodules. The largest on the left measures 15 mm. The main portal vein is patent. Calcified plaque within the normal caliber abdominal aorta. No retroperitoneal or pelvic lymphadenopathy. Multifocal scarring within the left kidney persists. 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 Mild fullness within the upper pole moiety has improved. The urothelial thickening within the left upper pole moiety has also improved. Bilateral nephrolithiasis again noted. No ureteral stones. No hydronephrosis. The bladder is underdistended. This may account for the bladder wall thickening. Interval development of mild right perinephric edema/fat stranding with patchy heterogeneous enhancement within the right kidney. There is also urothelial thickening within the right renal pelvis and right ureter. These findings likely represent a right-sided pyelitis/pyelonephritis. Stable 4.4 cm exophytic mass within the uterus. This favors a fibroid. Colonic diverticulosis. No evidence for acute diverticulitis. No bowel wall thickening or obstruction. The visualized appendix is unremarkable. IMPRESSION: 1. Interval development of mild right perinephric edema/fat stranding with patchy heterogeneous enhancement within the right kidney. There is also urothelial thickening within the right renal pelvis and right ureter. These findings likely represent a right-sided pyelitis/pyelonephritis. 2. Near-complete resolution of the mild fullness and urothelial thickening within the upper pole moiety of the duplicated left renal collecting system. 3. Bilateral nephrolithiasis. No ureteral stones. No hydronephrosis. 4. Additional findings as described above. ACT 112: Negative or not required by law. Electronically signed by: Abhinav Paige M.D. 06/26/2022 4:47 PM Chest X-Ray 06/27/22 14:46 XR chest 2V PA/lateral HISTORY: 66 years-old Female b/l basilar rales acute shortness of breath with bibasilar opacities COMPARISON: CT abdomen and pelvis 06/26/2022, Chest radiograph 06/14/2022 TECHNIQUE: PA and lateral views of the chest FINDINGS: Cardiac silhouette is enlarged. Atherosclerosis of the aorta. Mild chronic interstitial coarsening. No pneumothorax, large pleural effusion or lobar airspace consolidation. Mild linear right basilar atelectasis/scarring. Mild blunting of the costophrenic angles. Bones appear grossly intact. IMPRESSION: Cardiomegaly without acute process. ACT 112: Negative or not required by law. The above report was generated using voice recognition software. It may contain grammatical, syntax or spelling errors. Electronically signed by: Jared Malin M.D. 06/27/2022 3:59 PM Hospital Course (1) Acute pyelonephritis: right-sided - seen radiographically on admission CT urine culture grew enterococcus faecalis she initially received IV cephalosporin and this was changed to IV vancomycin on day of discharge she was transitioned to amoxicillin 875mg BID x 12 additional days blood cx's fortunately were negative while here just prior to discharge home the patient complained of severe urinary frequency PVR was about 200cc gomez catheter was deferred timed voids, etc was discussed prior to discharge home she will f/u with [facility] shortly after discharge (2) Urothelial cancer: 06/21/22 - s/p cystoscopy by Dr Coppola small papillary masses found in the right renal pelvis s/p biopsy biopsy c/w low-grade papillary urothelial cancer to have f/u with [facility] post-d/c for ongoing surveillance (3) Vertigo: chronic, intermittent for years - suspect BPV symptoms brought on by head movements she had mild vertigo during this hospitalization she was started on antivert 12.5mg TID scheduled this worked well for her vertigo a prescription for antivert was given at discharge (4) Dyspnea: the patient reported mild dyspnea and REYES for some time she blamed her symptoms on anxiety but underlying COPD or even coronary ischemia are possible culprits EKG did not show ischemic changes advised she f/u with PCP and consider outpatient stress test, PFTs, etc (5) Depression: cont home meds (6) GERD (gastroesophageal reflux disease): cont PPI (7) Abnormal lung sounds: b/l rales - cxr ordered and returned normal no evidence pulmonary edema, etc scar tissue? atelectasis? other? O2 sats were wnl the entire stay (8) Tobacco dependence: smoking cessation counseling provided Total Time Total Time Spent Total Time Spent (In Minutes): 40 Discharge Plan Discharge Items Patient Disposition: Home - Self-Care Reason For Visit: Urinary Tract Infection/Kidney Infection on right Discharge Diagnosis: 1. Urinary tract infection/right-sided kidney infection - improving 2, Chronic, intermittent vertigo 3. Recent diagnosis of right-sided low-grade papillary urothelial cancer Activity: As commented below Activity Comment: gradually increase your activity over the next 5-7 days Exercise/Sports: Wait until after follow-up appointment Driving/Machine Use: No driving if using narcotic pain killer medication Non-emergency contact: Primary Care Provider and Urologist Call non-emergency contact if: you have any medication questions, your symptoms worsen and you have a fever Follow-up/Referrals: Darwin Archer MD [Primary Care Provider] - (see Dr Archer within 5 days ) Diet: Regular Addtl Attending Provider Instructions: Ms Fitzgerald, You were hospitalized for a urinary tract infection. Unfortunately the infection in the bladder spread into your right kidney. However, you have done very nicely during your stay here. Your blood cultures have been negative - we did not find bacteria in the blood. Your lab work and vital signs have been stable. Dr Coppola from urology saw you in consult and have recommended a course of antibiotics to treat the urinary infection/kidney infection. In addition, you mentioned that you suffer from chronic vertigo. We tried meclizine medication and this worked well for you. Finally, you mentioned that you have episodes of shortness of breath at home. Although anxiety can cause shortness of breath I would want to make sure your lungs and heart are healthy before blaming it on anxiety. Recommendations - 1. amoxicillin antibiotic - 875mg twice daily x 12 days, first dose TONIGHT at bedtime. 2. meclizine 12.5mg every 8 hours as needed for dizziness/vertigo. 3. please speak to your family doctor about some tests to rule out heart & lung disease causing your shortness of breath. Suggest a stress test as well as pulmonary function tests ("PFTS"). 4. the urinary symptoms should improve over the next few days. You are having some mild urinary retention due to your infection. When you use the toilet empty the bladder as usual, but then wait a short period of time, and make sure you do not have any remaining urine to pass. Avoid excessive caffeine (coffee, soda, etc) as this will make your urinary symptoms worse. Follow-up - see Dr Archer within 5 days (or one of the other partners at [facility] See Dr Coppola as scheduled Return to [facility] if - * you have recurrent fevers over 100 degrees * you have inability or extreme difficulty passing your urine * you have worsening abdominal pain or flank pain * you have worsening shortness of breath * you develop severe diarrhea * any other concerns It was our pleasure to care for you! Dr Pelayo Pending Studies at Discharge: Yes Studies:: blood cultures, but thus far negative (no evidence of bacterial infection in the blood) Stand-Alone Forms: [facility], Work/School Release, Smoking Cessation Medications and DC Order Prescriptions: New meclizine 12.5 mg Tablet 12.5 mg PO TID PRN (Reason: dizziness or vertigo) Qty: 20 0RF amoxicillin 875 mg tablet 875 mg PO BID 12 Days Qty: 24 0RF Continued multivitamin [Multiple Vitamins] Tablet 1 tab PO QAM oxycodone 5 mg tablet 5 mg PO Q6 PRN (Reason: pain) Qty: 8 0RF Rx Instructions: for acute post surgical pain not managed by tylenol/ibuprofen sertraline 100 mg Tablet 200 mg PO HS pantoprazole 20 mg Tablet,Delayed Release (Dr/Ec) 20 mg PO QAM melatonin 10 mg Tablet 20 mg PO HS PRN (Reason: Sleep) turmeric 400 mg Capsule 400 mg PO HS PRN (Reason: Pain) vitamin V32-zazre acid 500-400 mcg Tablet 1 tab PO DAILY PRN (Reason: .SUPPLEMENT) Rx Instructions: administer with a meal Discharge Orders: Discharge Order (Routine); Ordered 06/29/22 Ordered By: Paras Pelayo Admission Data Admit Date/Time: 06/26/22 17:58 Attending Provider: Paras Pelayo Admit Provider: Tevin Ambrocio Primary Care Provider: Darwin Archer Other Providers: Kuldip Coppola ; Tevin Ambrocio Other Interventions: Discharge Summary Assessment (RN) Last Done: 06/29/22 17:49 Coding Level of Care Code D/C DAY MANAGEMENT >30 MINS Diagnoses Acute pyelonephritis N10 Urothelial cancer C68.9 Vertigo R42 Dyspnea R06.00 Depression F32.A GERD (gastroesophageal reflux disease) K21.9 Abnormal lung sounds R09.89 Tobacco dependence F17.200
== END 2022-06-29 18:27 | disposition home or self-care (01) | DRG 690 ==
LOC: ED 13:43 → SUATTDRO 17:58 → EDINP 17:58 → 3N 19:43